=== PATIENT | female | born 1990 | race Caucasian/White ===

== ENCOUNTER 2018-12-11 04:36 | Inpatient (IN) | payer MEDICARE ==
[~2018-12-11] VITALS: Ht 160 cm; Wt 96.6 kg
[2018-12-11] MEDS ORDERED: DEXT 5%/LR + PITOCIN 20UNITS/L 1,000 ML IV SCH (05:15)
[2018-12-11] MEDS ORDERED: BUTORPHANOL TARTRATE 2 MG/ML VIAL IV PRN (05:15)
[2018-12-11] MEDS ORDERED: METHYLERGONOVINE MALEATE 0.2 MG/ML IM PRN (05:15)
[2018-12-11] MEDS ORDERED: LIDOCAINE HCL 1% 20ML VIAL (Pyxis) INJ INFIL SCH (05:15)
[2018-12-11] MEDS ORDERED: MISOPROSTOL 100MCG TABLET VG SCH (05:15)
[2018-12-11] MEDS ORDERED: NALOXONE HCL 0.4 MG/ML 1ML VIAL IM PRN (05:15)
[2018-12-11] MEDS ORDERED: CARBOPROST TROMETHAMINE 250 MCG/ML AMPUL IM PRN (05:15)
[2018-12-11] MEDS: LACTATED RINGERS 1,000 ML IV SCH ×3 (05:42→22:00)
[2018-12-11] MEDS ORDERED: AMPICILLIN 2,000 MG in SODIUM CHLORIDE 0.9% 100 ML IV SCH (06:00)
[2018-12-11 06:27] LABS: BASOPHILS % 0.3 % (0.0-2.0); EOSINOPHILS % 0.8 % (0.0-5.0); HEMATOCRIT. 32.5 % (36.0-48.0); HEMOGLOBIN. 11.3 g/dL (12.0-16.0); MEAN CORPUSCULAR HEMOGLOBIN 27.8 pg (28.0-32.0); MEAN CORPUSCULAR VOLUME 80.2 fL (81.0-99.0); MEAN PLATELET VOLUME 8.5 fl (7.4-10.4); MONOCYTES % 5.2 % (2.0-8.0); NEUTROPHILS % 78.7 % (40.0-76.0); PLATELET 196 x1000/uL (130-400); RED BLOOD CELL COUNT 4.05 mill/uL (4.2-5.4); RED CELL DISTRIBUTION WIDTH 14.5 % (11.6-14.6)
[2018-12-11 06:36] LABS: PARTIAL THROMBOPLASTIN TIME 27.3 sec (23.4-31.0)
[2018-12-11 06:41] LABS: CLARITY URINE CLOUDY (CLEAR); COLOR URINE YELLOW (YELLOW); PH URINE 7.5 (4.5-8.0)
[2018-12-11 06:42] LABS: KETONES URINE NEGATIVE (NEGATIVE); LEUKOCYTE ESTERASE URINE 2+ (NEGATIVE); NITRITE URINE NEGATIVE (NEGATIVE); OCCULT BLOOD URINE 2+ (NEGATIVE); PROTEIN URINE NEGATIVE (NEGATIVE)
[2018-12-11 07:36] LABS: *AMPHETAMINES SCREEN URINE NEGATIVE (NEGATIVE); *BARBITURATES SCREEN URINE NEGATIVE (NEGATIVE); *BENZODIAZEPINES SCREEN URINE NEGATIVE (NEGATIVE); *COCAINE SCREEN URINE NEGATIVE (NEGATIVE); METHADONE URINE SCREEN NEGATIVE (NEGATIVE); OPIATES URINE SCREEN NEGATIVE (NEGATIVE)
[2018-12-11 07:37] LABS: CANNABINOID URINE SCREEN NEGATIVE (NEGATIVE); PHENCYCLIDINE URINE SCREEN NEGATIVE (NEGATIVE)
[2018-12-11 11:27] LABS: HEPATITIS B SURFACE ANTIGEN NEGATIVE
[2018-12-11 11:35] LABS: T4 FREE 1.25 ng/dL (0.76-1.46)
[2018-12-11] MEDS: BETAMETHASONE ACET/BETAMET 30 MG/5 ML VIAL IM SCH (12:13)
[2018-12-11] MEDS: AMPICILLIN 1,000 MG in SODIUM CHLORIDE 0.9% 50 ML IV SCH ×3 (12:13→22:01)
[2018-12-11] MEDS ORDERED: AZITHROMYCIN 500 MG in DEXT 5% WATER 250 ML IV SCH (15:00)
[2018-12-12] MEDS: AMPICILLIN 1,000 MG in SODIUM CHLORIDE 0.9% 50 ML IV SCH ×4 (02:07→14:10)
[2018-12-12] MEDS: LACTATED RINGERS 1,000 ML IV SCH (06:20)
[2018-12-12] MEDS ORDERED: METOCLOPRAMIDE HCL 10MG/2ML VIAL IV PRN (06:30)
[2018-12-12] MEDS ORDERED: DIPHENHYDRAMINE 50MG/ML VIAL IV PRN (06:30)
[2018-12-12] MEDS ORDERED: ONDANSETRON HCL 4MG/2ML INJ IV PRN (06:30)
[2018-12-12] MEDS ORDERED: ROPIVACAINE HCL/PF EPIDURAL 200 ML EP SCH (06:30)
[2018-12-12] MEDS: MAGNESIUM/ALUMINUM HYDROXIDE/SIMETHICONE 30ML UDC PO SCH ×2 (09:00→21:15)
[2018-12-12] MEDS ORDERED: METHAZOLAMIDE 50MG TABLET PO ONE ×2 (10:15→10:45)
[2018-12-12] MEDS: BETAMETHASONE ACET/BETAMET 30 MG/5 ML VIAL IM SCH (12:47)
[2018-12-12] MEDS: SIMETHICONE 80MG TABLET CHEW PO SCH ×2 (13:00→17:00)
[2018-12-12] MEDS ORDERED: DEXT 5%/LR + PITOCIN 20UNITS/L 1,000 ML IV SCH (15:42)
[2018-12-12] MEDS ORDERED: IBUPROFEN 400MG TABLET PO PRN (15:45)
[2018-12-12] MEDS ORDERED: BENZOCAINE/LANOLIN/ALOE VERA SPRAY TOP PRN (15:45)
[2018-12-12] MEDS ORDERED: GLYCERIN/WITCH HAZEL LEAF MEDICATED PAD TOP PRN (15:45)
[2018-12-12] MEDS ORDERED: DIPHENHYDRAMINE 25MG CAPSULE PO PRN (15:45)
[2018-12-12] MEDS ORDERED: LANOLIN OINT 7GM TUBE TOP PRN (15:45)
[2018-12-12] MEDS ORDERED: ACETAMINOPHEN WITH CODEINE 300/30MG TABLET PO PRN ×2 (15:45)
[2018-12-12] MEDS ORDERED: BISACODYL 10MG SUPP PR PRN (15:45)
[2018-12-12] MEDS ORDERED: HEMORRHOIDAL SUPP PR PRN (15:45)
[2018-12-12] MEDS: METHIMAZOLE 5MG TABLET PO SCH (17:00)
[2018-12-12 17:30] VITALS: BP 120/66
[2018-12-12 21:15] VITALS: BP 97/57
[2018-12-12] MEDS: DOCUSATE SODIUM 100MG CAPSULE PO SCH (21:16)
[2018-12-13 04:30] VITALS: BP 100/58
[2018-12-13 07:22] LABS: BASOPHILS % 0.1 % (0.0-2.0); HEMATOCRIT. 26.1 % (36.0-48.0); HEMOGLOBIN. 9.2 g/dL (12.0-16.0); LYMPHOCYTES % 11.1 % (20.0-50.0); MEAN CORPUSCULAR HEMOGLOBIN 28.5 pg (28.0-32.0); MEAN CORPUSCULAR VOLUME 80.8 fL (81.0-99.0); MEAN PLATELET VOLUME 8.7 fl (7.4-10.4); MONOCYTES % 6.4 % (2.0-8.0); NEUTROPHILS % 82.4 % (40.0-76.0); PLATELET 185 x1000/uL (130-400); RED BLOOD CELL COUNT 3.23 mill/uL (4.2-5.4); RED CELL DISTRIBUTION WIDTH 14.8 % (11.6-14.6)
[2018-12-13] MEDS: SIMETHICONE 80MG TABLET CHEW PO SCH ×3 (08:00→13:00)
[2018-12-13] MEDS: MAGNESIUM/ALUMINUM HYDROXIDE/SIMETHICONE 30ML UDC PO SCH (08:00)
[2018-12-13 09:00] VITALS: BP 112/60
[2018-12-13] MEDS: FERROUS SULFATE 325MG TABLET PO SCH ×3 (09:50→17:30)
[2018-12-13] MEDS: METHIMAZOLE 10MG TABLET PO SCH (09:51)
[2018-12-13] MEDS: PRENATAL VIT/FE FUMARATE/FA TABLET PO SCH (09:56)
[2018-12-13 17:00] VITALS: BP 113/57
[2018-12-13] MEDS: METHIMAZOLE 5MG TABLET PO SCH (19:13)
[2018-12-13 20:15] VITALS: BP 118/76
[2018-12-13] MEDS: DOCUSATE SODIUM 100MG CAPSULE PO SCH (21:10)
[2018-12-14 04:00] VITALS: BP 109/57
[2018-12-14 07:42] VITALS: BP 102/54
[2018-12-14] MEDS: METHIMAZOLE 10MG TABLET PO SCH (09:08)
[2018-12-14] MEDS: FERROUS SULFATE 325MG TABLET PO SCH (09:09)
[2018-12-14] MEDS: PRENATAL VIT/FE FUMARATE/FA TABLET PO SCH (09:09)
== END 2018-12-14 11:00 | disposition home or self-care (01) | DRG 560 ==
LOC: OBSVTOIN 04:36 → 8 EST LDRP 04:36 → 8 EST A/PP 15:40 → 8 EST LDRP 12-12 00:54 → 8EST 12-12 17:30
PROVIDERS: ADMIT Obstetrics & Gynecology; ATTEND Obstetrics & Gynecology
PROC: 10E0XZZ Delivery of Products of Conception, External Approach (ICD-10-PCS; principal; 2018-12-12)
PROC: 00HU33Z Insertion of Infusion Device into Spinal Canal, Percutaneous Approach (ICD-10-PCS; 2018-12-12)
PROC: 3E0R3BZ Introduction of Anesthetic Agent into Spinal Canal, Percutaneous Approach (ICD-10-PCS; 2018-12-12)
PROC: 0HQ9XZZ Repair Perineum Skin, External Approach (ICD-10-PCS; 2018-12-12)
DX: O42.913 Preterm premature rupture of membranes, unspecified as to length of time between rupture and onset of labor, third trimester (principal); E05.90 Thyrotoxicosis, unspecified without thyrotoxic crisis or storm; O69.81X0 Labor and delivery complicated by cord around neck, without compression, not applicable or unspecified; O99.214 Obesity complicating childbirth; O70.0 First degree perineal laceration during delivery; O99.284 Endocrine, nutritional and metabolic diseases complicating childbirth; Z37.0 Single live birth; Z3A.36 36 weeks gestation of pregnancy
CPT/HCPCS: 36415; 76805; 76818; 80305; 81003; 84439; 84443; 84481; 86592; 86703; 86762; 86850; 86900; 87340; 99281; J0290; J0456; J0702; J2590; J2795; J7050; J7060